=== PATIENT | female | born 1955 | race Caucasian/White ===

== ENCOUNTER 2017-04-03 19:55 | Emergency (ER) | payer BC ==
[2017-04-03 20:01] VITALS: BMI 26.4
--- NOTE | 2017-04-03 20:21 | DR.GENAD ---
HPI - PCP Primary Care Physician: DWAYNE - Complaint/Symptoms Chief Complaint Doctors Comments: Patient states that she is being treated with clindamycin for foot infection. She developed a rash today over over body. She denies dyspnea Chief Complaint:: ITCHING REDNESS , THINKS HAVING ALLERGIC REACTION - Source History Provided: Patient - Mode of Arrival Mode of Arrival: Ambulatory - Timing Onset of Chief Complaint: 04/03/17 PMH - PMH Past Medical History: Yes Past Medical History: Hypertension Past Surgical History: Yes Surgical History: Cholecystectomy, Hysterectomy - Family History History of Family Medical Conditions: Yes Family Medical History: Diabetes Mellitus, MS - Social History Does patient currently use any type of tobacco product: No Have you used tobacco products in the last 12 months: No Type of Tobacco Use: None Does any household member use tobacco: No Alcohol Use: None Do you use any recreational Drugs:: No Lives With: Family Lives Where: Home - infectious screening In the last 2 months have you had wt loss of >10#?: NO Have you had fever, night sweats or hemotysis?: No Have you traveled outside the country in the last 6 months?: No Isolation: Standard ROS - Review of Systems Eyes: No Symptoms Reported ENTM: No Symptoms Reported Respiratoy: No Symptoms Reported Cardiovascular: No Symptoms Reported Gastrointestinal/Abdominal: No Symptoms Reported Genitourinary: No Symptoms Reported Neurological: No Symptoms Reported Musculoskeletal: No Symptoms Reported Integumentary: No Symptoms Reported Hematologic/Lymphatic: No Symptoms Reported Endocrine: No Symptoms Reported Psychiatric: No Symptoms Reported All Other Systems: Reviewed and Negative PE - General General Appearance: Alert, In No Apparent Distress - Head Head Exam: Normal Inspection, Atraumatic - Eyes Eye exam: Normal Appearance, PERRL, EOMI - ENT ENT Exam: Normal Exam, Normal Oropharynx External Ear Exam: Normal External Inspection TM/Canal Exam: Bilateral Normal Nose Exam: Normal Nose Exam Mouth Exam: Normal Inspection Throat Exam: Normal Inspection - Neck Neck Exam: Normal Inspection, Full ROM - Chest Chest Inspection: Normal Inspection, Symmetric Chest Wall Rise - Respiratory Respiratory Exam: Normal Lung Sounds Bilat Respiratory Exam: Bilateral Clear to Auscultation - Cardiovascular Cardiovascular Exam: Regular Rate, Normal Rhythm - Abdominal Exam Abdominal Exam: Normal Inspection, Normal Bowel Sounds Abdominal Tenderness: negative: RUQ, RLQ, LUQ, LLQ, Epigastrium, Suprapubic, Diffuse, Mild, Moderate, Severe, Other - Extremities Extremities Exam: Normal Inspection, Full ROM, Tenderness (tenderness and erythema of left ankle) - Back Back Exam: Normal Inspection, Full ROM - Neurologic Neurological Exam: Alert, Oriented X3, CN II-XII Intact - Psychiatric Psychiatric Exam: Normal Affect, Normal Mood - Skin Skin Exam: Warm, Dry, Intact, Rash, Erythema (anterior chest, arms and back.) Course - Reevaluation 1st: Improved - Diagnosis Discharge Problem: Allergic reaction Qualifiers: Encounter type: initial encounter Qualified Code(s): T78.40XA - Allergy, unspecified, initial encounter - Discharge Plan Condition: Stable - Follow ups/Referrals Follow ups/Referrals: AMANDA RICE [Primary Care Provider] - 3 days - Instructions
[2017-04-03] MEDS ORDERED: SOLU-Medrol 125 MG VIAL ONE (20:23)
[2017-04-03] MEDS ORDERED: ADRENALINE CHL INJ ONE (20:23)
[2017-04-03] MEDS ORDERED: BENADRYL INJ 50 MG VIAL ONE (20:23)
[2017-04-03] MEDS ORDERED: SOLU-Medrol 125 MG VIAL IVP ONE (20:24)
[2017-04-03] MEDS ORDERED: ADRENALINE CHL INJ IM ONE (20:24)
[2017-04-03] MEDS ORDERED: BENADRYL INJ 50 MG VIAL IVP ONE (20:25)
[2017-04-03] MEDS ORDERED: ZANTAC INJ 50 MG in NS 50 ML IV 50 ML IV ONE (20:25)
[2017-04-03] MEDS ORDERED: ZANTAC PO SCH (22:00)
== END 2017-04-03 21:25 | disposition home or self-care (01) | DRG 916 ==
LOC: ER 19:55
DX: T78.40XA Allergy, unspecified, initial encounter (principal)
CPT/HCPCS: 96365; 96372; 96374; 99283; A4222; J0170; J1200; J2930